=== PATIENT | female | born 1965 | race Caucasian/White ===

== ENCOUNTER 2025-09-29 08:03 | Outpatient (CLI) | payer BC | END 2025-09-29 08:04 | disposition home or self-care (01) | LOC: CSHMAMMO 08:03 | PROVIDERS: ATTEND Nurse Practitioner Family | DX: R92.8 Other abnormal and inconclusive findings on diagnostic imaging of breast (principal); N63.11 Unspecified lump in the right breast, upper outer quadrant | CPT/HCPCS: 77066; G0279 ==